=== PATIENT | male | born 1975 | race Caucasian/White ===

== ENCOUNTER 2016-07-07 20:53 | Observation (INO) | payer OTHER ==
[~2016-07-07] VITALS: Ht 185.4 cm; Wt 97.0 kg
[2016-07-07] MEDS ORDERED: SODIUM CHLORIDE FLUSH 10ML SYR IVF ONE (21:30)
[2016-07-07] MEDS ORDERED: SODIUM CHLORIDE 0.9% 1,000ML IVBOLUS ONE (21:30)
[2016-07-07 22:39] LABS: BLOOD UREA NITROGEN 26 mg/dL (7-18)
[2016-07-07 22:40] LABS: ASPARTATE AMINO TRANSFERASE 25 U/L (15-37); IS PT STATUS REG ER OR PRE ER? YES
[2016-07-07] MEDS ORDERED: ASPIRIN 81 MG TABLET CHEW ONE (23:24)
[2016-07-07] MEDS ORDERED: ASPIRIN 81 MG TABLET CHEW PO ONE (23:30)
[2016-07-08] MEDS ORDERED: OMNIPAQUE 350 MG/ML, 100ML BOTTLE ONE (00:53)
[2016-07-08] MEDS ORDERED: POTASSIUM CHLORIDE 20 MEQ TAB.ER.PRT PO ONE (01:00)
[2016-07-08] MEDS ORDERED: POTASSIUM CHLORIDE 20 MEQ in SODIUM CHLORIDE 0.9% 250 ML IV ONE (01:00)
[2016-07-08] MEDS ORDERED: SODIUM CHLORIDE 0.9% 1,000ML IVBOLUS ONE (01:00)
[2016-07-08] MEDS ORDERED: POTASSIUM CHLORIDE 20 MEQ TAB.ER.PRT ONE (01:08)
[2016-07-08] MEDS ORDERED: BISACODYL 10 MG SUPP PR PRN (04:30)
[2016-07-08] MEDS ORDERED: POLYETHYLENE GLYCOL 17 GM PACKET PO PRN (04:30)
[2016-07-08] MEDS ORDERED: DOCUSATE 100 MG CAPSULE PO PRN (04:30)
[2016-07-08] MEDS ORDERED: LABETALOL 5MG/ML, 20ML IV PRN (04:30)
[2016-07-08] MEDS ORDERED: TRAZODONE 50MG TABLET PO PRN (04:30)
[2016-07-08] MEDS ORDERED: ACETAMINOPHEN 325 MG TABLET PO PRN (04:30)
[2016-07-08] MEDS ORDERED: ONDANSETRON ODT 4 MG PO PRN (04:30)
[2016-07-08 05:35] LABS: IS PT STATUS REG ER OR PRE ER? YES
[2016-07-08] MEDS ORDERED: ENOXAPARIN 40 MG/0.4 ML ONE (07:20)
[2016-07-08] MEDS ORDERED: NS + 20MEQ KCL 1,000 ML IV ONE (07:21)
[2016-07-08] MEDS: ENOXAPARIN 40 MG/0.4 ML SQ SCH (07:32)
[2016-07-08] MEDS: NS + 20MEQ KCL 1,000 ML IV SCH ×2 (07:33→20:53)
[2016-07-08] MEDS ORDERED: REGADENOSON 0.4 MG/5 ML SYRINGE ONE (07:55)
[2016-07-08] MEDS ORDERED: ASPIRIN 81 MG TABLET CHEW ONE (09:23)
[2016-07-08] MEDS: ASPIRIN 81 MG TABLET CHEW PO SCH (09:27)
[2016-07-08 10:12] VITALS: BP 128/88
[2016-07-08 11:13] LABS: IS PT STATUS REG ER OR PRE ER? NO
[2016-07-08 19:21] VITALS: BP 123/76
[2016-07-08] MEDS: ATORVASTATIN 80 MG TABLET PO SCH ×2 (20:38→20:39)
[2016-07-09] VITALS: BP 120/74
[2016-07-09] MEDS: NS + 20MEQ KCL 1,000 ML IV SCH ×3 (00:07→06:47)
[2016-07-09 04:00] VITALS: BP 120/74
[2016-07-09 04:26] LABS: HEMOGLOBIN 13.8 g/dL (13.7-18.0)
[2016-07-09 04:37] LABS: BLOOD UREA NITROGEN 17 mg/dL (7-18)
[2016-07-09] MEDS: ENOXAPARIN 40 MG/0.4 ML SQ SCH (05:22)
[2016-07-09 07:38] VITALS: BP 98/59
[2016-07-09] MEDS: ASPIRIN 81 MG TABLET CHEW PO SCH (08:51)
[2016-07-09 12:01] VITALS: BP 136/92
== END 2016-07-09 12:55 | disposition home or self-care (01) ==
LOC: ED 23:14 → EDIP 07-08 01:55 → INTOOBSV 07-08 01:55 → ICU 07-08 09:55 → DCLOUNGE 07-09 12:36
PROVIDERS: ADMIT Internal Medicine; ATTEND Internal Medicine
DX: I20.9 Angina pectoris, unspecified (principal); I10 Essential (primary) hypertension; D72.829 Elevated white blood cell count, unspecified; E78.5 Hyperlipidemia, unspecified; E87.6 Hypokalemia; R65.10 Systemic inflammatory response syndrome (SIRS) of non-infectious origin without acute organ dysfunction; E87.1 Hypo-osmolality and hyponatremia; R79.89 Other specified abnormal findings of blood chemistry; Z87.891 Personal history of nicotine dependence; Z79.52 Long term (current) use of systemic steroids
CPT/HCPCS: 36415; 71010; 71275; 78452; 80048; 80053; 82550; 82962; 83735; 84439; 84443; 84484; 85025; 85379; 85610; 85730; 87081; 93005; 93017; 96360; 96361; 96372; 99285; A9502; C9898; G0378; J1650; J3480; J7030; J7050; Q9967; J2785